=== PATIENT | female | born 1965 | race Caucasian/White ===

== ENCOUNTER 2017-10-08 20:07 | Emergency (ER) | payer OTHER ==
[~2017-10-08] VITALS: Ht 170.2 cm; Wt 106.1 kg
[~2017-10-08 20:07] MED LIST: ACETAMINOPHEN-1 EAC1 PO; ACYCLOVIR 400400 MG; ACYCLOVIR 400400 MG PO; ADVAIR 250-501 EACH INH; ADVAIR HFA115 MCG/21 INH; ALLOPURINOL 10100 M1 PO; ALLOPURINOL 30300 M1 PO; AMITRIPTYLINE H10 M1 PO; ANTACID650 MG PO; APAP W/CODEINE1 TA2 PO; ASPIR 8181 MG PO; ASPIRIN EC325 M1 PO; ASPIRIN325 PO; ATIVAN0.5 MG PO; ATIVAN1 MG PO; AZITHROMYCIN 2250 MG PO; BACTRIM 400-801 EACH PO; BACTRIM DS TAB1 EACH PO; BACTRIM PO; BUMETANIDE 1 MG1 M1 PO; BUMEX PO; CALCIUM; CEFTIN500 MG PO; CELEXA 20 MG TA20 M1 PO; CELEXA PO; CELEXA20 MG PO; CENTURY ULTIMA1 EAC1 PO; CHERATUSSIN AC118 ML PO; CIPRO250 M1 PO; CIPROFLOXACIN500 M1 PO; CLEOCIN HCL300 MG; COZAAR 25 MG TA25 M2 PO; CRANBERRY200 MG PO; CYMBALTA60 MG PO; DIAMOX SEQUELS500 MG PO; DILAUDID2 M1 PO; ESTRACE; ESTRACE0.5 MG PO; FIORICET 50-321 EACH; FLEXERIL; FLUCONAZOLE PO; HYDROCODON-ACE1 EAC7 PO; HYDROCODONE-AP1 EAC6 PO; IRON325; KEFLEX500 MG PO; MACROBID 100 M100 M2 PO; MULTI VITAMIN1 EACH PO; MULTIVITAMIN; NORCO 5-325 TA1 EAC1 PO; NORCO 5-325 TA1 EACH PO; NORVASC5 MG PO; OXYCODONE20 MG/1 M1 PO; PEPCID40 MG PO; PERCOCET 5-3251 EACH; PERCOCET 5-3251 EACH PO; PERCOCET PO; PREDNISONE 10 M10 M1; PREDNISONE 10 M10 MG PO; PREDNISONE 2.52.5 M1 PO; PREDNISONE PO; PREDNISONE50 MG PAD; PRILOSEC 20 MG20 MG PO; PROAIR HFA8.5 GM INH; PROTONIX; PROTONIX40 M2 PO; PROZAC40 MG; PYRIDIUM200 MG PO; ROBAXIN 750 MG750 M1 PO; ROBAXIN500 MG PO; SINGULAIR 10 MG10 MG PO; SINGULAIR PO; TOPAMAX 100 MG100 MG; VENLAFAXIN75 MG/1 T2 PO; VICODIN 5-5001 EACH PO; VICODIN ES 7.51 EACH PO; VIIBRYD40 MG; VISTARIL 25 MG25 M1 PO; WELLBUTRIN SR150 MG PO; XOPENEX 1.25 MG/3 M1; XOPENEX0.63 MG/3; ZANAFLEX4 MG PO; ZOFRAN ODT4 MG PO; ZPAK PO; ZYRTEC10 M5 PO; ZYRTEC10 MG PO
[2017-10-08 20:52] LABS: INFLUENZA A ANTIGEN None Detected (None Detect); INFLUENZA B ANTIGEN None Detected (None Detect)
[2017-10-08 22:51] VITALS: BP 136/75
== END 2017-10-08 22:52 | disposition home or self-care (01) ==
LOC: M.ERS 20:07
PROVIDERS: Nurse Practitioner Family
DX: R51 Headache (principal); J45.909 Unspecified asthma, uncomplicated; K21.9 Gastro-esophageal reflux disease without esophagitis; M19.90 Unspecified osteoarthritis, unspecified site; F32.9 Major depressive disorder, single episode, unspecified; I12.9 Hypertensive chronic kidney disease with stage 1 through stage 4 chronic kidney disease, or unspecified chronic kidney disease; N18.9 Chronic kidney disease, unspecified; Z88.8 Allergy status to other drugs, medicaments and biological substances; Z90.49 Acquired absence of other specified parts of digestive tract; Z90.710 Acquired absence of both cervix and uterus

== ENCOUNTER 2018-09-25 11:48 | Emergency (ER) | payer OTHER ==
[~2018-09-25] VITALS: Ht 170.2 cm; Wt 105.2 kg
[2018-09-25 11:59] VITALS: BP 158/98
[2018-09-25] MEDS ORDERED: LOPRESSOR50 PO (12:03)
[2018-09-25] MEDS ORDERED: ALBUTEROL SULFAT2 MG PO (12:03)
[2018-09-25] MEDS ORDERED: PROTONIX40 M2 PO (12:03)
[2018-09-25] MEDS ORDERED: ROCALTROL0.25 MCG PO (12:04)
[2018-09-25] MEDS ORDERED: ACYCLOVIR 400400 MG PO (12:04)
[2018-09-25] MEDS ORDERED: AMITRIPTYLINE H25 M2 PO (12:04)
[2018-09-25] MEDS ORDERED: SODIUM BICARBO650 M3 PO (12:05)
[2018-09-25] MEDS ORDERED: SYMBICORT160 MCG/4. INH (12:05)
[2018-09-25] MEDS ORDERED: MEDROLDOSEPACK PO (12:46)
== END 2018-09-25 13:15 | disposition home or self-care (01) ==
LOC: M.ERS 11:48
DX: M25.572 Pain in left ankle and joints of left foot (principal); I12.9 Hypertensive chronic kidney disease with stage 1 through stage 4 chronic kidney disease, or unspecified chronic kidney disease; N18.9 Chronic kidney disease, unspecified; J45.909 Unspecified asthma, uncomplicated; K21.9 Gastro-esophageal reflux disease without esophagitis; M19.90 Unspecified osteoarthritis, unspecified site; F32.9 Major depressive disorder, single episode, unspecified; G43.909 Migraine, unspecified, not intractable, without status migrainosus; Z88.8 Allergy status to other drugs, medicaments and biological substances; Z91.018 Allergy to other foods; Z90.710 Acquired absence of both cervix and uterus; Z90.49 Acquired absence of other specified parts of digestive tract

== ENCOUNTER 2019-04-16 18:48 | Emergency (ER) | payer OTHER ==
[~2019-04-16] VITALS: Ht 170.2 cm; Wt 112.0 kg
[~2019-04-16 18:48] MED LIST changes: +ALBUTEROL SULFAT2 MG PO; +AMITRIPTYLINE H25 M2 PO; +LOPRESSOR50 PO; +MEDROLDOSEPACK PO; +ROCALTROL0.25 MCG PO; +SODIUM BICARBO650 M3 PO; +SYMBICORT160 MCG/4. INH
[2019-04-16 19:45] LABS: ABSOLUTE EOSINOPHILS 0.4 thou/uL (0.0-0.7); ABSOLUTE LYMPHOCYTES 3.1 thou/uL (0.8-5.3); ABSOLUTE MONOCYTES 0.6 thou/uL (0.0-1.2); ABSOLUTE NEUTROPHILS 3.2 thou/uL (1.6-8.1); BASOPHILS 0.2 %; HEMATOCRIT 40.5 % (37.0-47.0); HEMOGLOBIN 13.6 gm/dL (12.0-15.0); LYMPHOCYTES 42.3 %; MCH 31.3 pg (26.0-34.0); MCHC 33.5 g/dL (28.0-37.0); MCV 93.4 fL (80.0-100.0); MONOCYTES 8.8 %; MPV 9.5 fl. (7.2-11.1); NUCLEATED RBCS 0 /100WBC; PLATELET COUNT* 298 thou/uL (150-400); POLYS 43.7 %; RBC 4.33 mil/uL (4.20-5.00); WBC 7.3 thou/uL (4.0-11.0)
[2019-04-16 19:56] LABS: CALCIUM 8.8 mg/dL (8.5-10.1); CREATININE 1.9 mg/dL (0.6-1.3); POTASSIUM 4.8 mmol/L (3.5-5.1)
[2019-04-16 20:01] LABS: ALBUMIN 3.7 g/dL (3.4-5.0); TOTAL BILIRUBIN 0.3 mg/dL (<0.1-1.0)
[2019-04-16 20:41] LABS: URINE BILIRUBIN NEGATIVE (Negative); URINE BLOOD NEGATIVE (Negative); URINE CLARITY CLEAR; URINE COLOR YELLOW; URINE GLUCOSE-RANDOM NEGATIVE (Negative); URINE KETONES TRACE (Negative); URINE LEUKOCYTES-REFLEX NEGATIVE (Negative); URINE NITRITE-REFLEX NEGATIVE (Negative); URINE PROTEIN TRACE (Negative); URINE UROBILINOGEN 0.2 E.U./dl (0.2-1.0)
[2019-04-16] MEDS ORDERED: CYCLOBENZAPRINE5 MG PO (21:26)
[2019-04-16] MEDS ORDERED: ZOFRAN ODT4 MG PO (21:26)
[2019-04-16] MEDS ORDERED: IBUPROFEN 800800 MG PO (21:26)
[2019-04-16 21:45] VITALS: BP 133/82
== END 2019-04-16 21:46 | disposition home or self-care (01) ==
LOC: M.ERS 18:48
PROVIDERS: Personal Emergency Response Attendant
DX: R11.2 Nausea with vomiting, unspecified (principal); R10.84 Generalized abdominal pain; J45.909 Unspecified asthma, uncomplicated; K21.9 Gastro-esophageal reflux disease without esophagitis; F32.9 Major depressive disorder, single episode, unspecified; G43.909 Migraine, unspecified, not intractable, without status migrainosus; M19.90 Unspecified osteoarthritis, unspecified site; I12.9 Hypertensive chronic kidney disease with stage 1 through stage 4 chronic kidney disease, or unspecified chronic kidney disease; N18.9 Chronic kidney disease, unspecified; Z88.1 Allergy status to other antibiotic agents; Z88.5 Allergy status to narcotic agent; Z88.8 Allergy status to other drugs, medicaments and biological substances

== ENCOUNTER 2019-07-14 18:08 | Inpatient (IN) | payer OTHER ==
[~2019-07-14] VITALS: Ht 170.2 cm; Wt 119.5 kg
[~2019-07-14 18:08] MED LIST changes: +CYCLOBENZAPRINE5 MG PO; +IBUPROFEN 800800 MG PO
[2019-07-14 18:12] VITALS: BP 137/100
[2019-07-14 18:46] LABS: ABSOLUTE EOSINOPHILS 0.3 thou/uL (0.0-0.7); ABSOLUTE LYMPHOCYTES 3.3 thou/uL (0.8-5.3); ABSOLUTE MONOCYTES 0.4 thou/uL (0.0-1.2); ABSOLUTE NEUTROPHILS 3.9 thou/uL (1.6-8.1); BASOPHILS 0.1 %; EOSINOPHILS 3.5 %; HEMOGLOBIN 13.6 gm/dL (12.0-15.0); LYMPHOCYTES 41.6 %; MCH 32.4 pg (26.0-34.0); MCV 92.7 fL (80.0-100.0); MONOCYTES 5.4 %; MPV 8.9 fl. (7.2-11.1); NUCLEATED RBCS 0 /100WBC; PLATELET COUNT* 342 thou/uL (150-400); POLYS 49.4 %; RBC 4.21 mil/uL (4.20-5.00); RDW-CV 13.5 % (10.5-14.5)
[2019-07-14 18:56] LABS: CALCIUM 10.3 mg/dL (8.5-10.1); CREATININE 2.3 mg/dL (0.6-1.3); POTASSIUM 4.5 mmol/L (3.5-5.1)
[2019-07-14 18:58] LABS: APTT 27.9 Seconds (25.0-31.3); PROTIME 10.4 Seconds (9.20-11.50)
[2019-07-14 19:11] LABS: CK-MB MASS 2.1 ng/mL (<0.5-3.6); MAGNESIUM 2.1 mg/dL (1.8-2.4); TOTAL BILIRUBIN 0.2 mg/dL (<0.1-1.0); TOTAL PROTEIN 8.3 g/dL (6.4-8.2)
[2019-07-14 20:51] VITALS: BP 158/83
[2019-07-14 21:26] VITALS: BP 144/90
[2019-07-14 22:03] VITALS: BP 157/94
[2019-07-14 23:01] VITALS: BP 147/86
[2019-07-15] VITALS (10 sets, daily range): BP systolic 113–151; BP diastolic 62–105
[2019-07-15 01:15] LABS: ALBUMIN 3.6 g/dL (3.4-5.0); CREATININE 2.4 mg/dL (0.6-1.3); TOTAL BILIRUBIN 0.1 mg/dL (<0.1-1.0); TOTAL PROTEIN 7.1 g/dL (6.4-8.2)
--- NOTE | 2019-07-15 04:47 | NUR ---
RECIEVED PT FROM ER AT 2054H, PUT HER TO ICU BED 7 AND CONNECTED TO CARDIAC MONITO. NOTED PT STILL HAVE A CHEST PAIN AND PROGRESS DESPITE OF GIVING HER HYDROCODONE. INFORM HOSPITALIST WITH ORDERS AND CARRIED OUT. PT SLEPT AFTER IV DILAUDED GIVEN BUT STILL HAVE CHEST PAIN. NO RESPIRATORY DISTRESS NOTED. KEPT ON NC AT 2LPM. NO CHANGES IN EKG. CONTINUE MONITOYING AND TOWARDS GOAL.
[2019-07-15 05:44] LABS: AMP/METHAMP Negative (Negative); BARBITURATES Negative (Negative); BENZODIAZEPINES Negative (Negative); COCAINE Negative (Negative); METHADONE Negative (Negative); OPIATES POSITIVE (Negative); PCP Negative (Negative); THC Negative (Negative)
--- NOTE | 2019-07-15 11:26 | EKG ---
[place] [address] ELECTROCARDIOGRAM REPORT Name: OSVALDO DALTON Room: [address] ADM IN .R.#: [id number] Admission: 07/14/19 Attend Phys: Juan Murphy MD Discharge: Date of : 67 Report #: [id number] THIS REPORT FOR: //name// [facility] ED Test Date: 2019-07-14 Test Time: 18:13:31 Pat Name: OSVALDO DALTON Department: Room: [facility] Gender: F Manager Speech: MA : 1965 Requested By: Narciso Neil Order Number: [id number] MD: Tristen Lazaro Measurements Intervals [place] Rate: 78 P: 20 HI: 138 QRS: 34 QRSD: 97 T: 17 QT: 372 QTc: 424 Interpretive Statements Sinus rhythm Compared to ECG 02/18/2017 17:00:56 no change Electronically Signed On 07-15-2019 11:25:41 CDT by Tristen Lazaro [email or web address] <ELECTRONICALLY SIGNED> By: Tristen Lazaro MD, [facility] 07/15/19 1125 12 12 Tristen Lazaro MD, FACC /EPI
--- NOTE | 2019-07-15 14:15 | CON ---
[address] [address] CONSULTATION Name: OSVALDO DALTON Room: [address] IN .R.#: [id number] Admission: 07/14/19 Attend Phys: Juan Murphy MD Discharge: Date of : 67 Report #: [id number] THIS REPORT FOR: //name// CC: Juan Nance NP Physician staff DATE OF SERVICE: 07/15/2019 CARDIOLOGY CONSULTATION HISTORY OF PRESENT ILLNESS: The patient is a 53-year-old single white female who I was asked to see in the hospital after she complained of chest pain. No old records available. However, the patient states that in 2010, she is having chest pain and had a cardiac catheterization at [facility] and was found to have no significant coronary artery disease. She has a history of asthma and does get short of breath with exertion. She has also had a previous EGD showing gastritis. Recently, her asthma has made worse. She also has sleep apnea and is being fitted for CPAP. She has a history of migraines, actually referred to [facility] in the past and the plan was to place an intracranial stent; however, her vessels were too small. She was doing well until yesterday, she began to have a sharp pain in her epigastric area, went into her back. She took some Tums, did not seem to help. She denied the pain related to coughing. She denied trauma or rash to her chest. The discomfort persisted, so she finally came to the Emergency Room yesterday and was admitted. The pain persisted last night. I was asked to see her for further evaluation and treatment. She denied the pain being related to lifting or bending over. She has had no bleeding. Denied any increasing edema in her legs or leg pain. She has had no palpitations or syncope. PAST MEDICAL HISTORY: She had previous cholecystectomy, hysterectomy, appendectomy. She has a history of snoring and had previous injections by an ENT doctor. She is currently being fitted for CPAP for sleep apnea. She has a history of asthma, hypertension, migraine headaches. MEDICATIONS: Include metoprolol, Protonix. She uses inhaler, has a nebulizer. ALLERGIES: SHE HAS AN ALLERGY TO QUININE, MACROBID. She has a history of chronic kidney disease. She is followed by Dr. Sprague. Her creatinine has been as high as 3.7 in the past. Because of this, she is not to take NSAIDs. FAMILY HISTORY: Mother and father had heart disease. 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 No smoking or alcohol abuse. REVIEW OF SYSTEMS: She is overweight, being 5 feet 7 inches, weighing 240 pounds. She has had no history of stroke, liver disease, cancer, chronic skin condition. The patient had actually been hospitalized here at [facility] in the past. She has actually been at the pain clinic in the past for chronic back pain. She was here in 2007 with meningitis. She was here in 2013 with an exacerbation of her asthma. She saw doctor here at [facility] in 2013 and had an echocardiogram that showed ejection fraction 60%, left atrial enlargement, aortic sclerosis with mild aortic stenosis. PHYSICAL EXAMINATION: GENERAL: Revealed a middle-aged female lying in bed. She appeared in no acute distress. VITAL SIGNS: She had a blood pressure of 130/70, pulse 60. She is afebrile. HEENT: She was anicteric. Conjunctivae pink. Mucous membranes moist. NECK: Veins difficult to assess due to obesity. No carotid bruits heard. CHEST: Clear to auscultation without wheezes. CARDIOVASCULAR: Regular rate and rhythm without rub or murmur. ABDOMEN: Obese. EXTREMITIES: Had no pitting edema, no Homans' sign. Dorsalis pedis pulse 2+ bilaterally. SKIN: Warm, dry. NEUROLOGIC: Nonfocal. DIAGNOSTIC DATA: Her ECG on admission yesterday showed a sinus rhythm, no significant ST or T-wave change. Her workup yesterday in the Emergency Room, she had a portable chest x-ray that showed normal heart size, some atelectasis. No acute abnormalities. LABORATORY DATA: Sodium 139, potassium 5.0; BUN 45; creatinine was 2.4, it was 2.3 in 2015. Her liver function studies were normal. Troponins all 0.06. Previous cholesterol 227, triglyceride 247, HDL 48, LDL 130. In 2015, her TSH was 3.97. White blood cell count 8.0, hemoglobin 13.6. IMPRESSION AND RECOMMENDATIONS: 1. Chest pain. Suspect noncardiac. Suspect gastrointestinal. I would not recommend stress testing at this time. 2. Shortness of breath, suspect secondary to asthma. 3. Hypertension. The [place] [address] CONSULTATION Name: OSVALDO DALTON Room: [address] IN ..#: [id number] Admission: 07/14/19 Attend Phys: Juan Murphy MD Discharge: Date of : 67 Report #: [id number] 4. Chronic kidney disease. The patient followed by Nephrology. 5. History of migraines. <ELECTRONICALLY SIGNED> By: Tristen Lazaro MD, FACC 07/15/19 1415 0849 [id number] Lazaro MD, FACC /nt
--- NOTE | 2019-07-15 15:54 | NUR ---
MET PATIENT IN ROOM; INTRODUCED SELF; NO DISCHARGE NEEDS IDENTIFIED BY PATIENT, AND NONE IDENTIFIED BY ASSESSMENT.
--- NOTE | 2019-07-15 16:31 | NUR ---
PT TRANSFERRED TO ROOM 200 FROM ICU VIA WHEELCHAIR AT APPROXIMATELY 1550. REPORT RECEIVED FROM DEUCE HOBBS. THIS RN AGREES WITH PREVIOUS MACHINE PIE MAKER. PT IS A&0X4. VSS. TRACING SR ON THE HUMAN SERVICES ASSISTANT. ON RA SAT UPPER 90'S. PT UP AD JENISE IN ROOM. PT TO HAVE EGD TOMORROW, 07/16. NPO AFTER MIDNIGHT. PT STATES CHEST PAIN IS A LITTLE BETTER AFTER MEDICATION GIVEN TO HER IN THE ICU PRIOR TO COMING UPSTAIRS. MEDICATIONS PER NOV. PT REPOSITIONS SELF. HOURLY ROUNDING OBSERVED. BED IN LOW POSITION. CALL LIGHT WITHIN REACH. WILL CONTINUE PLAN OF CARE.
--- NOTE | 2019-07-15 23:46 | NUR ---
INITAL ASSESSMENT PT MOVING AROUND IN BED STATED PAIN 8/10. PT ALSO ANXIOUS RE PAIN CONTROL. HYDROMORPHONE INCREASED FROM 0.5 TO 1.0 MG. PT GIVEN 1 MG HYDROMORPHONE WITH BENADRYL AND IS MUCH CALMER RATED PAIN AT 3/10. WHEN PT CALMER WE COLABERATED WHEN AND WHAT MEDICATION TO USE FOR NEXT DOSE.
[2019-07-16] VITALS: BP 115/55; BP 153/75
[2019-07-16 04:00] VITALS: BP 131/72
[2019-07-16 07:30] VITALS: BP 117/62
[2019-07-16 08:00] VITALS: BP 117/62
--- NOTE | 2019-07-16 08:24 | NUR ---
ASSUMED CARE OF PT AT APPROXIMATELY 0700. PT SITTING IN CHAIR. PT A&0X4, COMPLAINS OF PAIN TO HEAD AND CHEST. PT GIVEN IV DILAUDID BY NOCS AT APPROXIMATELY 0445 WITH PARTIAL RELIEF. DENIES ANY SHORTNESS OF BREATH. ON RA SAT 100%. TRACING SR ON THE FIELD CROP FARMWORKER. UP AD JENISE IN ROOM. PT NPO FOR EGD TODAY, CONSENT SIGNED AND PLACED IN CHART. PRE OP CHECKLIST COMPLETED. GI CONSULT IN PLACE. PT GOAL FOR TODAY IS PAIN MGMT, EGD, AND DISCHARGE PLANNING. AM ASSESSMENT CHARTED. MEDICATIONS PER NOV. PT REPOSITIONS SELF. HOURLY ROUNDING OBSERVED. BED IN LOW POSITION. CALL LIGHT WITHIN REACH. WILL CONTINUE PLAN OF CARE.
[2019-07-16 16:34] VITALS: BP 122/62
--- NOTE | 2019-07-16 17:09 | NUR ---
NO ACUTE CHANGES THROUGHOUT SHIFT. REFER TO CHARTING. PT HAD EGD TODAY. REFER TO RESULTS. PT COMPLAINED OF PAIN TO CHEST AND HEAD THIS AFTERNOON. TREATED WITH PRN IV DILAUDID WITH PARTIAL RELIEF. CONTINUES TO TRACE SR ON THE EVP CHIEF EXPLORATION OFFICER. ON RA SAT UPPER 90'S. PT DENIES ANY SHORTNESS OF BREATH. UP AD JENISE IN ROOM. POSSIBLE DISCHARGE HOME TOMORROW 07/17. POST EGD- DR DELGADO ORDERED STAT CT CHEST AND CT ABDOMEN AND REQUESTED RESULTS BE CALLED TO HIM. THIS RN CONTACTED PACU AND DEUCE BILL STATED SHE WOULD PRINT RESULTS AND LEAVE THEM FOR DR Mark. MEDICATIONS PER NOV. PT REPOSITIONS SELF. HOURLY ROUNDING OBSERVED. BED IN LOW POSITION. CALL LIGHT WITHIN REACH. WILL CONTINUE PLAN OF CARE.
[2019-07-16 20:00] VITALS: BP 120/54
[2019-07-17] VITALS: BP 115/55
[2019-07-17 04:00] VITALS: BP 136/64
[2019-07-17 04:20] LABS: ABSOLUTE BASOPHILS 0.1 thou/uL (0.0-0.2); ABSOLUTE EOSINOPHILS 0.3 thou/uL (0.0-0.7); ABSOLUTE LYMPHOCYTES 2.7 thou/uL (0.8-5.3); ABSOLUTE MONOCYTES 0.4 thou/uL (0.0-1.2); ABSOLUTE NEUTROPHILS 3.1 thou/uL (1.6-8.1); EOSINOPHILS 4.5 %; HEMATOCRIT 33.2 % (37.0-47.0); LYMPHOCYTES 41.1 %; MCH 32.1 pg (26.0-34.0); MCHC 34.3 g/dL (28.0-37.0); MCV 93.3 fL (80.0-100.0); MONOCYTES 6.5 %; MPV 9.3 fl. (7.2-11.1); NUCLEATED RBCS 0 /100WBC; POLYS 46.9 %; RBC 3.56 mil/uL (4.20-5.00); RDW-CV 13.4 % (10.5-14.5); WBC 6.6 thou/uL (4.0-11.0)
[2019-07-17 04:24] LABS: HEMOGLOBIN 11.4 gm/dL (12.0-15.0); PLATELET COUNT* 223 thou/uL (150-400)
[2019-07-17 04:39] LABS: ALBUMIN 3.1 g/dL (3.4-5.0); CALCIUM 9.7 mg/dL (8.5-10.1); CREATININE 2.2 mg/dL (0.6-1.3); POTASSIUM 4.6 mmol/L (3.5-5.1); TOTAL BILIRUBIN 0.2 mg/dL (<0.1-1.0); TOTAL PROTEIN 6.7 g/dL (6.4-8.2)
--- NOTE | 2019-07-17 05:23 | NUR ---
PT IS A&O X4 UP AD JENISE IN ROOM. DID HAVE C/O PAIN TO HEAD/CHEST TREATED WITH PRN MEDS WITH PARTICAL RELIEF. NPO FOR MORNING MRCP TO REMAIN NPO UNTIL GI IS CALLED WITH RESULTS. PT SLEPT WELL THROUGH OUT HS SHIFT. CURRENTLY ASLEEP IN BED WITH CALL LIGHT WITHIN REACH.
[2019-07-17] MEDS ORDERED: METOPROLOL SUCC25 M1 PO (10:08)
[2019-07-17] MEDS ORDERED: BUTALB-APAP-CA1 EACH PO (10:08)
[2019-07-17] MEDS ORDERED: PEPCID20 MG PO (10:08)
[2019-07-17] MEDS ORDERED: PROTONIX40 M2 PO (10:08)
[2019-07-17] MEDS ORDERED: PERCOCET PO (10:08)
[2019-07-17 12:27] VITALS: BP 136/92
--- NOTE | 2019-07-17 12:32 | NUR ---
Nutrition: Pt admitted with chest pain. Seen for high BMI. Pt was in some back/kidney pain during our visit. She said GI spoke with her but she still doesn't understand what is going on. Albumin 3.1. Regular diet ordered, pt eating during our visit. Wt: 263#. We briefly discussed hydration, water intake, renal FXN. Pt stated she has h/o renal infections. She denied need for education. Appears at low nutrition risk.
[2019-07-17 15:00] LABS: URINE CLARITY CLEAR; URINE COLOR YELLOW
[2019-07-17 15:01] LABS: BACTERIA-REFLEX None Seen /HPF (None Seen); CASTS None Seen /LPF (None Seen); CRYSTALS None Seen /LPF (None Seen); SQUAMOUS 0-3 Few /LPF (0-3); URINE BILIRUBIN NEGATIVE (Negative); URINE BLOOD NEGATIVE (Negative); URINE GLUCOSE-RANDOM NEGATIVE (Negative); URINE KETONES NEGATIVE (Negative); URINE LEUKOCYTES-REFLEX 1+ (Negative); URINE NITRITE-REFLEX NEGATIVE (Negative); URINE PROTEIN NEGATIVE (Negative); URINE RBC None Seen /HPF (0-2); URINE UROBILINOGEN 0.2 E.U./dl (0.2-1.0); URINE WBC-REFLEX 0-5 Rare /HPF (0-5)
[2019-07-17 16:11] VITALS: BP 136/92
[2019-07-17 17:14] VITALS: BP 122/76
--- NOTE | 2019-07-17 17:41 | NUR ---
ASSUMED PT CARE AT 0700, PT A&O X4, VSS, REGISTERED APPRAISER TRACING SINUS RHYTHM BUT PT WAS LATER CHANGED TO MED SURG STATUS, FULL ASSESSMENT CHARTED. PT RATING CHEST PAIN 7-910 DISPITE HAVING DILAUDID ON BOARD. ALL DIAGNOSTICS NEGATIVE. PT LATER STATED SHE FELT IF SHE HAD A UTI "COMING ON". PT RECVD BOLUS OF FLUIDS AND UA TAKEN WHICH LATER CAME BACK CLEAN, NO NEW ORDERS GIVEN. PT DISCHARGED HOME AT APPROX 1740, EDUCATED ON ALL DISCHARGE INSTRUCTIONS INCLUDING FOLLOW UP APPOINTMENTS AND MEDICATIONS. IV REMOVED, HOURLY ROUNDING COMPLETED.
--- NOTE | 2019-07-18 10:43 | CON ---
[address] [address] CONSULTATION Name: OSVALDO DALTON Room: [address] IN M.R.#: [id number] Admission: 07/14/19 Attend Phys: Juan Murphy MD Discharge: 07/17/19 Date of : 67 Report #: [id number] THIS REPORT FOR: //name// CC: Juan Murphy Physician staff Goyo HUTCHINSON DICTATED BY: Becky HUTCHINSON DATE OF SERVICE: 07/15/2019 Please note at the time of this dictation, the patient was seen and physically examined by myself. REASON FOR CONSULTATION: Chest discomfort, noncardiac. HISTORY OF PRESENT ILLNESS: This 53-year-old female who was just recently seen in our office by myself on 07/08/2019 for worsening of her GERD in which she was having increased coughing and her control panel operator wanted her to be evaluated further to see if her acid reflux was making her asthma worse. She has been having ongoing symptoms since March of worsening of taking her Protonix daily. She states she has had the supplement with Tums or Caitie-Obion several times a week to help with all of this. She has been having recurrent bouts of exacerbation of her asthma with bronchitis since this time and cannot seem to get better. Her control panel operator has made adjustments in her inhalers without significant improvement. The patient did have an EGD in November of this year at [facility] by Dr. Bellamy that showed grade B esophagitis and that is when she was started on the Protonix 40 mg daily. She has also had a colonoscopy done back in August 2016 that showed some diverticulosis, nonbleeding hemorrhoids and she did have an angioectasia noted at the cecum, otherwise negative. The patient was scheduled for an outpatient EGD 07/31 but on Saturday, the patient states she went out running errands. She had lunch with a friend. After she had lunch with a friend she states she went home, she started developing this intense upper chest pressure in which she did take some Tums and Caitie-Obion and laid down. However, when she woke up, it was more intense. When the intensity is very high, she states when she came in, her pain was 7 or 8. She did have some nausea associated with it, but no vomiting. She does not state that she has had worsening of her reflux that she had noted during this time period prompting her to come in. The patient has been seen by Dr. Lazaro in the ICU and states that there are no further recommendations from them and we will await their note, so that we can proceed with her EGD tomorrow. ALLERGIES: ARTIFICIAL SWEETENERS. MEDICATIONS: From home include Singulair, Century multivitamin, Zyrtec, aspirin, Lopressor, Protonix, Zovirax, [place] [address] CONSULTATION Name: OSVALDO DALTON Room: [address] IN ..#: [id number] Admission: 07/14/19 Attend Phys: Juan Murphy MD Discharge: 07/17/19 Date of : 67 Report #: [id number] PAST MEDICAL HISTORY: Chronic kidney disease, history of elevated LFTs, hypertension, asthma with recurrent bronchitis, GERD, arthritis, depression and migraines. PAST SURGICAL HISTORY: Hysterectomy, cholecystectomy and a retinal vein occlusion. She had surgery on as well as an appendectomy. FAMILY HISTORY: Maternal aunt had colon cancer. SOCIAL HISTORY: Denies any alcohol, tobacco or illegal drug use. REVIEW OF SYSTEMS: Twelve-point review of systems is essentially negative except what is mentioned in the HPI. PHYSICAL EXAMINATION: VITAL SIGNS: Temperature 36.7, pulse 69, respirations 13, blood pressure 135/76. HEART: Regular rate and rhythm. LUNGS: Diminished, but clear. ABDOMEN: Soft, positive bowel sounds in all 4 quadrants with no masses or tenderness noted at this time. LABORATORY DATA: Hemoglobin is 13.1, white count is 8, platelets 342. PT 10.4, INR is 1. LFTs are normal. BUN is 45, creatinine is 2.4 with a GFR of 21. Chest x-ray was negative. EKG and troponins were negative as well. IMPRESSION: 1. Chest pain, noncardiac. 2. Nausea. 3. Gastroesophageal reflux disease, worsening despite treatment. 4. Asthma, worsening. 5. Maternal aunt, colon cancer. PLAN: 1. EGD tomorrow with Dr. Mendoza once we obtain cardiac, written okay. 2. Further recommendations to be made once the procedure has been performed. 3. We will continue her on Protonix at this time. Thank you for allowing us to participate in this patient's care. Please do not hesitate to call with any questions in regard to this consult. <ELECTRONICALLY SIGNED> By: Malcolm Mendoza DO 07/18/19 1043 1133 [id number] Mendoza DO /nt
--- NOTE | 2019-07-20 13:07 | PATH ---
[address] [address] PATHOLOGY RPT PROCEDURE Name: OSVALDO DALTON Room: [address] IN M.R.#: [id number] Admission: 07/14/19 Date of : 67 Discharge: 07/17/19 Report #: [id number] Path Case #: [id number] [facility] Accession Number: [id number] . 01 Material submitted: . PART A: stomach - ANTRAL BIOPSY PART B: esophagus - ESOPHAGEAL BIOPSY AT 36CM . 01 Clinical history: . None provided . 02 Diagnosis: A. 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 . B. Esophageal biopsy at 36 cm: - Benign esophageal and gastric/columnar types mucosa with moderate chronic and active inflammation compatible with reflux, negative for goblet cells/diagnostic Ross's metaplasia, granulomas, viral inclusions and dysplasia. (BREANA:bob; 07/20/2019) . . Special stain on A: H. pylori immuno QMS 07/20/2019 1004 Local . 02 Electronically signed: . Minesh Avitia MD, Pathologist NPI- [id number] . 01 Gross description: . A. Received in formalin labeled "Osvaldo Dalton, antral biopsy for H. pylori for erosive gastritis," are 2 segments of francois soft tissue measuring 0.8 x 0.2 x 0.2 cm in aggregate dimensions and ranging from 0.3 to 0.5 cm in maximum dimension. The specimen is submitted entirely in cassette A1. . B. Received in formalin labeled "Osvaldo Dalton, esophageal biopsy at 36 cm, possible Ross's," is a single segment of francois soft tissue measuring 0.6 cm in maximum dimension. The specimen is entirely submitted in cassette B1. (TSD; 07/16/2019) TOB/TOB 07/16/2019 Local . 02 Pathologist provided ICD-10: K29.50, K21.0 . 02 [place] [address] PATHOLOGY RPT PROCEDURE Name: OSVALDO DALTON Room: [address] IN M.R.#: [id number] Admission: 07/14/19 Date of : 67 Discharge: 07/17/19 Report #: [id number] Path Case #: [id number] [facility] . [id number], [id number], [id number] Specimen Comment: A courtesy copy of this report has been sent to Specimen Comment: [phone], . Specimen Comment: Report sent to / DR ESPOSITO Performed at: [address], [place], [place] [address] MD Jaguar Mccloud MD Phone: [phone] Performed at: 02 [facility] [address], [place], [place] [id number] MD Minesh Avitia MD Phone: [phone]
--- NOTE | 2019-08-04 14:11 | 2DMMODE ---
[place] [address] 2 D/M-MODE ECHOCARDIOGRAM Name: OSVALDO DALTON Room: [address] IN [facility]#: [id number] Admission: 07/14/19 Attend Phys: Juan Murphy, Discharge: 07/17/19 Date of : 67 Date of Service: 08/04/19 1410 Report #: [id number] THIS REPORT FOR: //name// APPROVED REPORT Study performed: 07/15/2019 13:24:36 EXAM: Comprehensive 2D, Doppler, and color-flow Echocardiogram Patient Location: In-Patient Room #: 007 Status: routine BSA: 2.25 HR: 68 bpm BP: 135/76 mmHg Rhythm: NSR Other Information Study Quality: Technically Difficult Indications Murmur Chest Pain 2D Dimensions IVSd: 10.39 (7-11mm) LVOT Diam: 19.41 (18-24mm) LVDd: 52.11 mm PWd: 9.33 (7-11mm) Ascending Ao: 25.03 (22-36mm) LVDs: 28.78 (25-40mm) Aortic Root: 27.92 mm Volumes Left Atrial Volume (Systole) LA ESV Index: 35.80 mL/m2 Aortic Valve AoV Peak Rizwan.: 1.77 m/s AO Peak Gr.: 12.48 mmHg LVOT Max P.85 mmHg AO Mean Gr.: 6.36 mmHg LVOT Mean P.24 mmHg LVOT Max V: 1.57 m/s AO V2 VTI: 36.37 cm LVOT Mean V: 0.92 m/s DAISY (VTI): 2.90 cm2 LVOT V1 VTI: 35.72 cm Mitral Valve E/A Ratio: 1.22 MV Decel. Time: 209.27 [place] [address] 2 D/M-MODE ECHOCARDIOGRAM Name: OSVALDO DALTON Room: [address] IN M.R.#: [id number] Admission: 07/14/19 Attend Phys: Juan Murphy, Discharge: 07/17/19 Date of : 67 Date of Service: 08/04/19 1410 Report #: [id number] MV E Max Rizwan.: 1.26 m/s MV PHT: 60.69 ms MVA (PHT): 3.63 cm2 TDI E/Lateral E': 9.69 E/Medial E': 12.60 Medial E' Rizwan.: 0.10 m/s Lateral E' Rizwan.: 0.13 m/s Pulmonary Valve PV Peak Rizwan.: 1.21 m/s PV Peak Gr.: 5.89 mmHg Tricuspid Valve RAP Estimate: 5.00 mmHg TR Peak Gr.: 24.50 mmHg RVSP: 29.00 mmHg PA Pressure: 29.00 mmHg Left Ventricle The left ventricle is normal size. There is normal LV segmental wall motion. There is normal left ventricular wall thickness. Left ventricular systolic function is normal. LVEF is 65-70%. Transmitral Doppler flow pattern suggests impaired LV relaxation. Right Ventricle The right ventricle is normal size. The right ventricular systolic function is normal. Atria Left atrium is moderately dilated. The right atrium size is normal. Aortic Valve Mild aortic valve sclerosis. No aortic regurgitation is present. There is no aortic valvular stenosis. Mitral Valve The mitral valve is normal in structure. Trace mitral regurgitation. No evidence of mitral valve stenosis. Tricuspid Valve The tricuspid valve is normal in structure. Trace tricuspid regurgitation. estimated pa pressure 30 mm Hg Pulmonic Valve Pulmonic valve is not well visualized. There is no pulmonic [place] [address] 2 D/M-MODE ECHOCARDIOGRAM Name: OSVALDO DALTON Room: [address]#: [id number] Admission: 07/14/19 Attend Phys: Juan Murphy, Discharge: 07/17/19 Date of : 67 Date of Service: 08/04/19 1410 Report #: [id number] Great Vessels The aortic root is normal in size. IVC is normal in size and collapses >50% with inspiration. Pericardium There is no pericardial effusion. <Conclusion> The left ventricle is normal size. There is normal left ventricular wall thickness. Left ventricular systolic function is normal. LVEF is 65-70%. Transmitral Doppler flow pattern suggests impaired LV relaxation. Left atrium is moderately dilated. Mild aortic valve sclerosis. There is no aortic valvular stenosis. Trace mitral regurgitation. Trace tricuspid regurgitation. estimated pa pressure 30 mm Hg IVC is normal in size and collapses >50% with inspiration. <ELECTRONICALLY SIGNED> By: Galdino Howe MD, FACC 08/04/19 1410 09 09 Galdino Howe MD, FACC /INF
== END 2019-07-17 17:40 | disposition home or self-care (01) | DRG 381 ==
LOC: M.ERS 18:08 → M.2W 19:05 → M.ICU 19:05 → M.TBA-ER 19:05 → M.ICU 20:50 → M.2W 07-15 15:58
PROVIDERS: Emergency Medicine; Internal Medicine; Internal Medicine Gastroenterology; ADMIT Internal Medicine
PROC: 0DB58ZX Excision of Esophagus, Via Natural or Artificial Opening Endoscopic, Diagnostic (ICD-10-PCS; principal; 2019-07-16)
PROC: 0DB68ZX Excision of Stomach, Via Natural or Artificial Opening Endoscopic, Diagnostic (ICD-10-PCS; principal; 2019-07-16)
DX: K22.70 Barrett's esophagus without dysplasia (principal); N18.4 Chronic kidney disease, stage 4 (severe); J98.11 Atelectasis; Z68.41 Body mass index [BMI] 40.0-44.9, adult; K29.70 Gastritis, unspecified, without bleeding; R07.89 Other chest pain; K21.0 Gastro-esophageal reflux disease with esophagitis; K44.9 Diaphragmatic hernia without obstruction or gangrene; I13.10 Hypertensive heart and chronic kidney disease without heart failure, with stage 1 through stage 4 chronic kidney disease, or unspecified chronic kidney disease; F32.9 Major depressive disorder, single episode, unspecified; K75.81 Nonalcoholic steatohepatitis (NASH); I77.89 Other specified disorders of arteries and arterioles; E04.1 Nontoxic single thyroid nodule; E66.01 Morbid (severe) obesity due to excess calories; J42 Unspecified chronic bronchitis; G43.909 Migraine, unspecified, not intractable, without status migrainosus; M19.90 Unspecified osteoarthritis, unspecified site; J45.909 Unspecified asthma, uncomplicated; Z88.5 Allergy status to narcotic agent; Z88.1 Allergy status to other antibiotic agents; Z88.8 Allergy status to other drugs, medicaments and biological substances; Z82.49 Family history of ischemic heart disease and other diseases of the circulatory system; Z90.710 Acquired absence of both cervix and uterus; Z90.49 Acquired absence of other specified parts of digestive tract; Z88.6 Allergy status to analgesic agent; Z80.0 Family history of malignant neoplasm of digestive organs

== ENCOUNTER 2020-10-16 17:56 | Emergency (ER) | payer OTHER ==
[~2020-10-16] VITALS: Ht 170.2 cm; Wt 109.3 kg
[~2020-10-16 17:56] MED LIST changes: +BUTALB-APAP-CA1 EACH PO; +METOPROLOL SUCC25 M1 PO; +PEPCID20 MG PO
[2020-10-16] MEDS ORDERED: SPIRIVA18 MCG INH (18:16)
[2020-10-16] MEDS ORDERED: BIOTIN5 MG PO (18:16)
[2020-10-16] MEDS ORDERED: VITAMIN D31250 MC1 PO (18:16)
[2020-10-16] MEDS ORDERED: CYMBALTA20 MG PO (18:17)
[2020-10-16] MEDS ORDERED: AZELASTIN-FLUTI23 GM PO (18:22)
[2020-10-16] MEDS ORDERED: FAMOTIDINE 10 M10 MG PO (18:23)
[2020-10-16] MEDS ORDERED: BUTALB-APAP-CA1 EACH PO (18:23)
[2020-10-16] MEDS ORDERED: ZOFRAN4 MG PO (18:23)
[2020-10-16] MEDS ORDERED: BUSPIRONE HCL10 MG PO (18:23)
[2020-10-16] MEDS ORDERED: UBRELVY50 MG PO (18:24)
[2020-10-16 18:39] LABS: ABSOLUTE BASOPHILS 0.1 thou/uL (0.0-0.2); ABSOLUTE EOSINOPHILS 0.3 thou/uL (0.0-0.7); ABSOLUTE LYMPHOCYTES 3.2 thou/uL (0.8-5.3); ABSOLUTE MONOCYTES 0.5 thou/uL (0.0-1.2); ABSOLUTE NEUTROPHILS 3.2 thou/uL (1.6-8.1); BASOPHILS 0.9 %; EOSINOPHILS 4.4 %; HEMATOCRIT 36.7 % (37.0-47.0); HEMOGLOBIN 12.4 gm/dL (12.0-15.0); LYMPHOCYTES 43.8 %; MCH 31.8 pg (26.0-34.0); MCHC 33.7 g/dL (28.0-37.0); MCV 94.2 fL (80.0-100.0); MONOCYTES 6.6 %; MPV 8.9 fl. (7.2-11.1); NUCLEATED RBCS 0 /100WBC; PLATELET COUNT* 252 thou/uL (150-400); POLYS 44.3 %; RDW-CV 13.7 % (10.5-14.5); WBC 7.3 thou/uL (4.0-11.0)
[2020-10-16 18:47] LABS: CALCIUM 8.8 mg/dL (8.5-10.1); CREATININE 2.1 mg/dL (0.6-1.3); POTASSIUM 4.6 mmol/L (3.5-5.1)
[2020-10-16 18:52] LABS: ALBUMIN 3.5 g/dL (3.4-5.0); TOTAL BILIRUBIN 0.1 mg/dL (<0.1-1.0); TOTAL PROTEIN 6.9 g/dL (6.4-8.2)
[2020-10-16 19:52] VITALS: BP 141/70
== END 2020-10-16 19:53 | disposition home or self-care (01) ==
LOC: M.ERS 17:56
PROVIDERS: Nurse Practitioner Family
DX: G43.909 Migraine, unspecified, not intractable, without status migrainosus (principal); J45.909 Unspecified asthma, uncomplicated; K21.9 Gastro-esophageal reflux disease without esophagitis; I12.9 Hypertensive chronic kidney disease with stage 1 through stage 4 chronic kidney disease, or unspecified chronic kidney disease; N18.9 Chronic kidney disease, unspecified; Z90.49 Acquired absence of other specified parts of digestive tract; Z90.710 Acquired absence of both cervix and uterus; Z79.899 Other long term (current) drug therapy; Z79.82 Long term (current) use of aspirin; Z88.1 Allergy status to other antibiotic agents; Z88.5 Allergy status to narcotic agent